=== PATIENT | male | born 1980 | race American Indian/Alaskan Native ===

== ENCOUNTER 2019-07-31 08:58 | Day surgery (SDC) | payer MEDICARE ==
[2019-07-31] MEDS ORDERED: LACTATED RINGERS 1,000 ML IV SCH (10:00)
[2019-07-31] MEDS ORDERED: fentaNYL 100 MCG/2 ML INJ IV PRN (10:17)
--- NOTE | 2019-07-31 10:19 | Anesthesia Day of Surgery ---
Anesthesia Day of Surgery - Day of Surgery Patient Examined: Yes Patient H&P Reviewed: Yes Patient is NPO: Yes
--- NOTE | 2019-07-31 10:19 | Anesthesia Consultation ---
Anesthesia Consult and Med Hx Date of service: 07/31/19 - Airway Anesthetic Teeth Evaluation: Good ROM Head & Neck: Adequate Mental/Hyoid Distance: Adequate Mallampati Class: Class I Intubation Access Assessment: Good - Pulmonary Exam CTA: Yes - Cardiac Exam Cardiac Exam: RRR - Pre-Operative Health Status ASA Pre-Surgery Classification: ASA2 Proposed Anesthetic Plan: General - Pulmonary Hx Smoking: Yes (former) Hx Asthma: Yes (mild-intermittent; no recent inhaler use) Hx Sleep Apnea: No (HOLLIS PRE SCREEN LOW RISK.) - Cardiovascular System Hx Hypertension: No Hx Heart Attack/AMI: No - Central Nervous System 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
[2019-07-31] MEDS ORDERED: MIDAZOLAM 2 MG/2 ML INJ IV NR (11:00)
[2019-07-31] MEDS ORDERED: HYDROmorphone 1 MG/1 ML INJ ONE (11:18)
[2019-07-31] MEDS ORDERED: LIDOCAINE MPF (2%) 20 MG/1 ML VIAL 5 ML ONE (11:18)
[2019-07-31] MEDS ORDERED: PROPOFOL 200 MG/20 ML VIAL IV ONE (11:18)
[2019-07-31] MEDS ORDERED: PIPERACIL/TAZOBACTA 4.5/NS 100 4.5 GM/100 ML VIAL IV SCH (11:30)
[2019-07-31] MEDS ORDERED: IOHEXOL 300 MG/ML 50ML IV ONE (12:00)
[2019-07-31] MEDS ORDERED: ONDANSETRON 4 MG/2 ML INJ ONE (12:05)
--- NOTE | 2019-07-31 12:08 | Short Stay Summary ---
Short Stay Documentation Date of service: 07/31/19 - History H&P: obtained from office - Allergies and Medications Current Medications: Allergies gabapentin Allergy (Verified 07/18/19 17:02) Anaphylaxis Home Medications Medication Instructions Recorded Confirmed Last Taken Type ALBUTEROL Inhaler (OR & NICU) 2 puff IH QID PRN 07/18/19 07/31/19 04/30/19 History [Proair] Acetaminophen [Non-Aspirin Extra 500 mg PO PRN PRN 07/18/19 07/31/19 07/17/19 History Strength] Active Medications Fentanyl (Sublimaze) 50 mcg IV Q5MIN PRN PRN Reason: Pain , Severe (7-10) Stop: 07/31/19 20:00 Lactated Ringer's (Lactated Ringers) 1,000 mls @ 100 mls/hr IV DIRECT VENESSA Last Admin: 07/31/19 10:25 Dose: 100 mls/hr Documented by: Midazolam HCl (Versed) 2 mg IV PREOP NR Stop: 07/31/19 23:59 - Brief post op/procedure progress note Date of procedure: 07/31/19 Pre-op diagnosis: NGB, rec uti Post-op diagnosis: same Procedure: cysto rpg Anesthesia: GETA Findings: nl Surgeon: LITTLE RAMIREZ Estimated blood loss: minimal Pathology: none Condition: stable - Hospital course Hospital course: orpacuhome - Disposition Condition at discharge: Good Disposition: DC-01 TO HOME OR SELFCARE Short Stay Discharge Plan Activity: advance as tolerated Follow up with: ILTTLE RAMIREZ MD [Staff Physician] - 14 Days
[2019-07-31 12:46] VITALS: BP 112/64
--- NOTE | 2019-07-31 13:42 | Post Anesthesia Evaluation ---
- Post Anesthesia Evaluation Patient Participated: Yes Airway Patent: Yes Stable Respiratory Function: Yes Nausea/Vomiting: No Temp > 96.8F: Yes Pain Manageable: Yes Adequeate Hydration: Yes Anesthesia Complications: No
--- NOTE | 2019-07-31 14:12 | Fluoroscopy Report ---
INTRAOPERATIVE FLUOROSCOPY: ABDOMEN INDICATION: RECURRENT UTI /NEUROGENIC BLADDER. TECHNIQUE: Intraoperative spot images were obtained during the procedure. FINDINGS: Bilateral retrograde urography was performed. There is unremarkable opacification of the renal collec ting systems and ureters on the submitted images. Please see the procedural report for further detail s. Fluoroscopy Time: 10 seconds. Fluoroscopy Images: 5. Signer Name: Jose Eduardo Ying MD Signed: 07/31/2019 2:08 PM Workstation Name: [id number]
--- NOTE | 2019-08-19 15:53 | Operative Report ---
PREOPERATIVE DIAGNOSES: 1. Neurogenic bladder. 2. Recurrent urinary tract infection. POSTOPERATIVE DIAGNOSES: 1. Neurogenic bladder. 2. Recurrent urinary tract infection. PROCEDURE: Cysto RPG. ANESTHESIA: General. FINDINGS: Normal. SURGEON: Jeff Perez M.D. ESTIMATED BLOOD LOSS: Minimal. PATHOLOGY: None. CONDITION: Stable. CLINICAL INDICATIONS: The patient was counseled on RCBA, antibiotics, SCDs. The patient has a neurogenic bladder, did self-catheterization, has a history of recurrent UTIs and has not had a scope. Counseled on options including observation. Desired to proceed. DESCRIPTION OF PROCEDURE: The patient was transferred to OR suite in supine position, anesthesia, dorsal lithotomy, prepped and draped in standard fashion. A 22-Russian scope was passed, normal penile, bulbar prostatic urethra. Upon entering bladder, glass cystoscopy 30 and 70 lens demonstrated no tumors, lesions. No hydro, no significant trabeculation. There was some debris, which was flushed out. Right UO cannulated, 8-Russian cone-tipped catheter, contrast injected. Normal right distal ureter, proximal ureter, renal pelvis calyces, no filling defects or hydronephrosis. This was repeated on the left side with similar normal findings on retrograde pyelogram. At this point, the scope was slowly withdrawn. Exam under anesthesia, bilateral descended testicles, no masses. Digital rectal exam, no nodules. The patient's digital rectal exam, no nodules. Genitourinary exam, testicles without masses. The patient was awakened, transferred to PACU in good and stable condition. JOB# [id number] ATS/NTS
== END 2019-07-31 14:00 | disposition home or self-care (01) ==
LOC: OR 08:58
PROVIDERS: ATTEND Urology
DX: N31.8 Other neuromuscular dysfunction of bladder (principal); N52.8 Other male erectile dysfunction; N39.0 Urinary tract infection, site not specified; F32.9 Major depressive disorder, single episode, unspecified; G43.909 Migraine, unspecified, not intractable, without status migrainosus; J45.909 Unspecified asthma, uncomplicated; Z79.82 Long term (current) use of aspirin; Z88.8 Allergy status to other drugs, medicaments and biological substances; Z79.899 Other long term (current) drug therapy; Z98.890 Other specified postprocedural states; Z86.2 Personal history of diseases of the blood and blood-forming organs and certain disorders involving the immune mechanism
CPT/HCPCS: 52005; 74420; C1758; J1170; J2405; J2543; J2704; J7120; Q9967